=== PATIENT | male | born 1970 | race Caucasian/White ===

== ENCOUNTER 2023-06-27 19:27 | Emergency (ER) | payer MEDICAID, OTHER ==
[~2023-06-27] VITALS: Ht 165.1 cm; Wt 63.5 kg
[2023-06-27 20:41] VITALS: TEMP 98.1
[2023-06-27] MEDS ORDERED: ACETAMINOPHEN ES 500 MG TABLET ONE (21:31)
[2023-06-27] MEDS ORDERED: ACET-2605 PO (21:32)
[2023-06-27] MEDS ORDERED: NAPR500T6 PO (21:32)
[2023-06-27] MEDS ORDERED: IBUPROFEN 400 MG TABLET ONE (21:32)
[2023-06-27] MEDS: ACETAMINOPHEN ES 500 MG TABLET PO ONE (21:35)
[2023-06-27] MEDS: IBUPROFEN 400 MG TABLET PO ONE (21:35)
[2023-06-27 21:52] VITALS: BP 128/71; O2SAT 99
== END 2023-06-27 21:53 | disposition home or self-care (01) ==
LOC: ER 19:31
DX: M70.22 Olecranon bursitis, left elbow (principal); Y93.89 Activity, other specified